=== PATIENT | male | born 2000 ===

== ENCOUNTER 2025-06-27 17:33 | Emergency (ER) | payer BC, SELFPAY ==
[2025-06-27 17:40] VITALS: BP 129/89; PULSE 81; TEMP 36.9; O2SAT 98; BMI 33.1
--- OUTSIDE RECORDS SUMMARY | 2025-06-27 18:25 | XMS_ITS | Patient Health Record ---
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 Name Role Phone Gracie Rubin Unavailable [phone] Allergies No Known Allergies Reason For Referral No Information Social History Sex Assigned At : Social History Observation Description Sex Assigned At Male Plan Of Treatment No Information Insurance Providers Payer Name Payer Address Payer Phone Subscriber Number Group Number Insured Name Patient Relationship to Insured Coverage Start Date Coverage End Date [employer] [address] [place], [place] [id number] Alin Becerra Jr Self - patient is the insured 2 [id number] [address] [address] [place] [phone] Mario Becerra Jr - patient is the [id number] [facility] after [place] [employer] Envolve[address] [place], [place] [id number] Jr, VictorSelf - patient is the [id number] 2021
--- OUTSIDE RECORDS SUMMARY | 2025-06-27 18:25 | XMS_ITS | Clinical Summary ---
Author Organization [employer] Address [id number] [address] [place] [address] Care Team Providers Care Truck Washer Name Role Phone Jaxon Landers MD Primary Care Provider [phone] Allergies No known active allergies Medications * This document contains information received from the source organization and may not represent a complete record from that organization. MedicationSigDispense QuantityRefillsLast FilledStart DateEnd DateStatus oseltamivir (TAMIFLU) 75 mg capsule Take 1 capsule (75 mg total) by mouth in the morning and 1 capsule (75 mg total) before bedtime. 10 capsule 2Active Active Problems ProblemNoted DateDiagnosed DateIntermittent explosive /15/2021nxiety 09/07/2020 Family History Medical HistoryRelationNameCommentsDiabetesBrotherHypothyroidismBrother HypertensionFatherStrokeFatherCoronary artery diseaseMaternal GrandfatherBreast cancerMaternal GrandmotherDiabetesMotherHypertensionMotherRelationNameStatus CommentsBrotherFatherMaternal GrandfatherMaternal GrandmotherMother Social History Tobacco UseTypesPacks/DayYears UsedDateSmoking Tobacco: Every DayCigarsSmokeless Tobacco: Never Tobacco Cessation:Ready to Q uit: Not Asked; Counseling Given: Not Answered Alcohol UseStandard Drinks/WeekCommentsNot Currently0 (1 standard drink = 0.6 oz pure alcohol)PHQ-2AnswerDate RecordedTotal Agmdq059ChildcareAnswerDate NjxxfnxjOzqqtfrciKbyyjyu73/12/2019EmploymentAnswerDate RecordedEmploymentUnknown 02/02/2019Purpose - LifeAnswerDate RecordedPurpose and direction in lifeUnknown 09/06/2020ex and Gender InformationValueDate RecordedSex Assigned at BirthNot on fileLegal GziZlhg5103/29/2015 11:56 AM EDTGender IdentityNot on fileSexual OrientationNot on file Last Filed Vital Signs Vital SignReadingTime TakenCommentsBlood Jirqgyfm295/6808/08/2022 2:23 PM EST Gsfdb17284/16/2022 2:23 PM MAAUbhegcpgxde15.3 ??C (99.2 ??F)08/08/2022 2:23 PM ESTRespiratory Gpea708210/09/2021 2:23 PM ESTOxygen Slahrqowus79%08/08/2022 2:23 PM ESTInhaled Oxygen Concentration--Nczlpy37.9 kg (196 lb)08/08/2022 2:23 PM EST Efzicf312.1 cm (5' 5 )04/14/2021 9:55 AM EDTBody Mass Index32.62004/14/2021 9:55 AM EDT Plan of Treatment Health MaintenanceDue DateLast DoneCommentsDepression Elkijcvhx43/30/2011Tobacco Gzqqnuzfh33/30/2011DTaP,Tdap and Td Vaccines (7 - Td or Tdap)04/20/2022 04/20/2012, 12/12/2004, 11/12/2000, Additional history existsAdult BMI Screening Influenza Wguvsku7404/24/2025 Medical Devices Not on file Insurance * Guarantor: CAROL LAMBERT TypeRelation to PatientDate of BirthPhone Billing AddressPersonal/YflnfcDfiuq89/15/1973 [address] [id number] Care Teams Team MemberRelationshipSpecialtyStart DateEnd Jaxon Landers MD [address]. Provider retired 11/22/24 [place] [address] PCP - GeneralFamily Suoascpc26/29/17
[2025-06-27] MEDS: LIDOCAINE/EPINEPHRINE/TETRACAINE 3 ML GEL.PF.APP TOPICAL (19:37)
--- NOTE | 2025-06-27 19:40 | PC.NURSE ---
Pt presents to for a small laceration to the inner corner of his left eyelid Pt states this happened while working on a vehicle and he was prying at some plastic when the flathead screwdriver slipped back and hit him in the eye eyeball itself is uninjured, no complaints of vision abnormalities 1cm well approximated lac to inner corner of upper left eyelid Pt had tetanus shot 6 years ago
--- NOTE | 2025-06-27 20:14 | ED_ITS ---
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 He denies any visual changes such as blurry vision, loss of peripheral vision, double vision excetra. He denies pain. He works in a environment with a lot of floating particles and was worried about infection of the wound when returning to work. His tetanus is up-to-date. Related Data Home Medications ?Medication ?Instructions ?Recorded ?Confirmed No Known Home Medications 06/27/2512/16 Allergies Allergy/AdvReac Type Severity Reaction Status Date / Time Unable to Assess Allergy Verified 06/27/25 17:42 Review of Systems ROS Status of ROS 10 or more systems reviewed and unremark able except as noted in history and below PFSH PFSH Social History Little interest or pleasure in doing things: not at all Feeling down, depressed, or hopeless: not at all Exam Narrative Exam Narrative: General: No distress, age-appropriate Skin: Warm, dry, no pallor. No rash. Head: Normocephalic, atraumatic. Neck: Supple, non-tender. Eye: Pupils are equal, round and EOMI. No scleral icterus. 0.5 cm laceration on the medial side of the left eyelid. Eyelid flipped, not through and through. Ears, Nose, Mouth, and Throat: No nasal mucosal hypertrophy. Oral mucosa is moist, no posterior oropharynx erythema, uvula is mid-line Cardiovascular: Regular Rate and Rhythm without murmur, gallop or rub. Respiratory: No accessory muscle use or respiratory distress. Musculoskeletal: Full ROM of all extremities, no calf or popliteal tenderness Neurological: A&O x4. No cranial nerve dysfunction observed. No truncal ataxia. Moves all extremities. Sensation intact. Psychiatric: Cooperative and interactive. Normal mood and affect. Constitutional Vital Signs, click to edit/add: Last Vital Signs Temp 98.4 F 06/27/25 17:40 Pulse 81 06/27/25 17:40 Resp 16 06/27/25 17:40 BP 129/89 06/27/25 17:40 Pulse Ox 98 06/27/25 17:40 O2 Del Method Room Air 06/27/25 17:40 Course Vital Signs Vital signs: Vital Signs Temperature 98.4 F 06/27/25 17:40 Pulse Rate 81 06/27/25 17:40 Respiratory Rate 16 06/27/25 17:40 Blood Pressure 129/89 06/27/25 17:40 Pulse Oximetry 98 06/27/25 17:40 Oxygen Delivery Method Room Air 06/27/25 17:40 Temperature 98.4 F 06/27/25 17:40 Pulse Rate 81 06/27/25 17:40 Respiratory Rate 16 06/27/25 17:40 Blood Pressure 129/89 06/27/25 17:40 Pulse Oximetry 98 06/27/25 17:40 Oxygen Delivery Method Room Air 06/27/25 17:40 Medical Decision Making MDM Narrative Medical decision making narrative: The patient is a 24-year-old male who presented with a superficial laceration to the left eyelid, located in the natural eyelid crease. The injury occurred when a screwdriver kicked back while the patient was working on a car. On examination, the laceration was found to be superficial and did not extend through the full thickness of the eyelid. The eyelid was gently flipped, and there was no evidence of orbital injury or involvement of deeper structures. There were no signs of ocular trauma such as corneal abrasion, hyphema, or foreign bodies. The patient denied any visual changes, pain, or other concerning symptoms such as double vision or eye movement restriction. Given the location and nature of the wound, the decision was made to proceed with wound closure under local anesthesia. Topical anesthesia was applied to the affected area, and two 6-0 Ethilon sutures were placed to approximate the wound edges. The wound was cleaned and irrigated with normal saline to minimize the risk of infection. No complications were encountered during the procedure. The patient tolerated the procedure well and was instructed on wound care, including keeping the area clean, avoiding touching or rubbing the eyelid, and using topical antibiotics as prescribed. Return precautions discussed with patient. Patient discharged in stable condition with plans for suture removal in 5 days with PCP or return to the ED. Differential Diagnosis Differential Diagnosis: Eyelid laceration, ocular trauma, orbital fracture Discharge Plan Discharge Chief Complaint: Wound/Laceration Clinical Impression: Eyelid laceration Patient Disposition: Home, Self-Care Time of Disposition Decision: 20:09 Condition: Good Mode of Transportation: Private Vehicle Prescriptions / Home Meds: No Action No Known Home Medications Print Language: Citizen Of [place] Instructions: Facial Laceration (ED) Additional Instructions: Have stitches removed in 5-7 days. Keep wound moist with petroleum jelly or Neosporin/bacitracin. Do not submerge wound in water such as swimming, do not let the shower hit the wound directly until healed. Watch for signs and symptoms of infection including new or increasing redness, odorous drainage, thick monet/brown drainage. Return to the ER with any visual changes. Wash wound daily with soap and water. Keep wound covered in dirty environments such as wo rk. Referrals: SURAJ STEELE [Primary Care Provider, Family Practice] - 1 week Discharge Date/Time: 06/27/25 20:42 Procedures ED Laceration Laceration Laceration 1: Site: other (Left Eyelid) Side (if applicable): left Size (cm): 0.5 Description: linear Depth: simple, single layer Anesthetic used: lidocaine 1% Pre-repair: wound explored, irrigated extensively and wound margins revised Skin layer closed with: other (Ethilon) Size (cm): 6-0 Number of sutures: 2 Technique: simple, interrupted
== END 2025-06-27 20:42 | disposition home or self-care (01) ==
PROVIDERS: Emergency Provider Emergency Medicine; PCP Family Medicine
DX: S01.112A Laceration without foreign body of left eyelid and periocular area, initial encounter (principal); W27.0XXA Contact with workbench tool, initial encounter
CPT/HCPCS: 12011; 99282